=== PATIENT | female | born 1995 | race Two or more races ===

== ENCOUNTER 2017-10-22 08:09 | Day surgery (SDC) | payer OTHER ==
[2017-10-21 08:50] VITALS: BMI 20.9
[~2017-10-22 08:09] MED LIST: LACTATED RINGERS 1,000 ML IV SCH
[2017-10-22 09:28] VITALS: BP 135/76; PULSE 75; RESP 18; TEMP 97.7
== END 2017-10-22 10:08 | disposition home or self-care (01) ==
LOC: ORWHC2ENDO 08:09
DX: R11.0 Nausea (principal); Z53.8 Procedure and treatment not carried out for other reasons
CPT/HCPCS: 84703

== ENCOUNTER 2018-04-05 19:18 | Outpatient (CLI) | payer OTHER ==
[2018-04-05] MEDS ORDERED: PANTOPRAZOLE SODIUM 40 MG GRANULE PKT PO STA (19:58)
[2018-04-05] MEDS ORDERED: PANTOPRAZOLE 40 MG TABLET PO STA (20:12)
[2018-04-05 21:54] VITALS: RESP 16; TEMP 98.2
[2018-04-05 21:57] VITALS: BP 127/80; PULSE 100
--- NOTE | 2018-04-08 08:39 | P.MSEPDOC ---
Presenting Problems - Arrival Data Date of Arrival on Unit: 04/05/18 Time of Arrival on Unit: 19:18 Mode of Transport: Ambulatory - Complaint OB-Reason for Admission/Chief Complaint: Pain Comment: abd pain around belly button and left upper quad. Medical History - Information : 1 Para: 0 Term: 0 : 0 Abortions: Spontaneous or Elective: 0 Number of Living Children: 0 - Gestational Age Gestational Age by ARIEL (wks/days): 28 Weeks and 3 Days Review of Systems - Review of Systems Constitutional: No problems Breast: No problems ENT: No problems Cardiovascular: No problems Respiratory: No problems Gastrointestinal: Pain Genitourinary: No problems Musculoskeletal: No problems Neurological: No problems Skin: No problems Comment: pt reports history of ulcers. Vital Signs - Temperature Temperature: 98.2 F Temperature Source: Temporal Artery Scan - Pulse Left Pulse Rate: 100 Pulse Assessment Method: Automatic Cuff - Respirations Respiratory Rate: 16 Oxygen Delivery Method: Room Air - Blood Pressure Right Arm Blood Pressure: 127/80 Blood Pressure Mean: 95 Blood Pressure Source: Automatic Cuff Medical Screen Scoring (Pre) - Cervical Exam Dilation: Exam Deferred Effacement: Exam Deferred Membranes: Intact - Uterine Contractions Frequency: N/A Duration: N/A Intensity: N/A - Maternal Vital Signs Maternal Temperature: N/A Maternal Blood Pressure: N/A Signs of Preeclampsia: Epigastric Pain = 1 Maternal Respirations: N/A - Pain Assessment Pain Location and Character: Abdomen Pain Scale Used: Numeric (1 - 10) Pain Intensity: 6 Pain Management Goal: 3 Pain Description: *Acute, Sharp, Stabbing Pain Frequency: Constant Pain Duration Units: Days Pain Behavior: Vocalization Pain Aggravating Factors: Activity, Position Non-Pharmacological Interventions: Relaxation Technique - Maternal Trauma Maternal Trauma: N/A - Assessment Baseline FHR: 135 Heart Rate - NICHD Category: Category I (Normal) = 0 NST: Reactive Position: N/A Station: N/A - Total Score Total Score (Pre): 1 - Level of Risk Level of Risk: Low (0-5) Physician Notification (Pre) - Physician Notified Physician Notified Date: 04/05/18 Physician Notified Time: 19:51 Physician/Practitioner Notifed:: Dr. Beasley Spoke With: Dr. Beasley New Order Received: Yes - Notification Comment Comment: Verbal report given to Dr. Beasley see [facility]. Orders for prilosec 20mg and cycle blood pressure. Physician will reevaluate after done in OR. Medical Screen Scoring (Post) - Cervical Exam Dilation: Exam Deferred Effacement: Exam Deferred Membranes: Intact - Uterine Contractions Frequency: N/A Duration: N/A Intensity: N/A - Maternal Vital Signs Maternal Temperature: N/A Maternal Blood Pressure: N/A Signs of Preeclampsia: Epigastric Pain = 1 Maternal Respirations: N/A - Pain Assessment Pain Location and Character: Abdomen Pain Scale Used: Numeric (1 - 10) Pain Intensity: 6 Pain Management Goal: 3 Pain Description: *Acute, Sharp, Stabbing Pain Frequency: Constant Pain Duration Units: Days Pain Behavior: Vocalization Non-Pharmacological Interventions: Position/Reposition - Maternal Trauma Maternal Trauma: N/A - Assessment Heart Rate: 135 Heart Rate - NICHD Category: Category I (Normal) = 0 NST: Reactive Position: N/A Station: N/A - Total Score Total Score (Post): 1 - Post Treatment Level of Risk Post Treatment Level of Risk: Low (0-5) Physician Notification (Post) - Physician Notified Physician Notified Date: 04/05/18 Physician Notified Time: 20:41 Physician/Practitioner Notified:: Dr. Beasley Spoke With: Dr. Beasley New Order Received: Yes - Notification Comment Comment: discharge and follow up intructions given. Disposition - Disposition OB Disposition: Discharge to home Discharge Date: 04/05/18 Discharge Time: 20:41 I agree with the RN Medical Screening Exam: Yes Risk & Benefit of care provided described in d/c instruction: No Diagnosis: EOSINOPHILIC GASTRITIS OR GASTROENTERITIS
== END 2018-04-05 20:41 | disposition home or self-care (01) ==
LOC: FBPOP 19:18
PROVIDERS: ATTEND Obstetrics & Gynecology
DX: O99.613 Diseases of the digestive system complicating pregnancy, third trimester (principal); K52.9 Noninfective gastroenteritis and colitis, unspecified; Z3A.28 28 weeks gestation of pregnancy
CPT/HCPCS: 59025; G0463; 99213

== ENCOUNTER 2018-05-12 11:21 | Outpatient (CLI) | payer OTHER ==
[2018-05-12 18:44] VITALS: BP 125/69; PULSE 88; RESP 18; TEMP 98.3
--- NOTE | 2018-05-16 11:32 | P.MSEPDOC ---
Presenting Problems - Arrival Data Date of Arrival on Unit: 05/12/18 Time of Arrival on Unit: 11:30 Mode of Transport: Ambulatory - Complaint OB-Reason for Admission/Chief Complaint: Pain Comment: upper left quad abd pain onset yesterday. no vomitting or diarrhea. states a little emesis yesterday am but that is normal for her for morning sickness. states constipation. was inst on stool softeners and took 1 tab on sat am but none since. last bm 4 days ago with much straining and discomfort. states constipation has been a lifelong problem for her. Medical History - Information : 1 Para: 0 Term: 0 : 0 Abortions: Spontaneous or Elective: 0 Number of Living Children: 0 - Gestational Age Gestational Age by ARIEL (wks/days): 33 Weeks and 6 Days Review of Systems - Review of Systems Constitutional: No problems Breast: No problems ENT: No problems Cardiovascular: No problems Respiratory: No problems Gastrointestinal: Constipation Genitourinary: No problems Musculoskeletal: No problems Neurological: No problems Skin: No problems Vital Signs - Temperature Temperature: 98.3 F Temperature Source: Oral - Pulse Right Brachial Pulse Rate: 88 Pulse Assessment Method: Auscultation - Respirations Respiratory Rate: 18 Oxygen Delivery Method: Room Air O2 Sat by Pulse Oximetry: 97 - Blood Pressure Right Arm Blood Pressure: 125/69 Blood Pressure Mean: 87 Blood Pressure Source: Automatic Cuff Medical Screen Scoring (Pre) - Cervical Exam Dilation: Exam Deferred Effacement: Exam Deferred - Uterine Contractions Frequency: N/A Duration: N/A Intensity: N/A - Maternal Vital Signs Maternal Temperature: N/A Maternal Blood Pressure: N/A Signs of Preeclampsia: N/A Maternal Respirations: N/A - Pain Assessment Pain Location and Character: Left, Upper, Abdomen Pain Scale Used: Numeric (1 - 10) Pain Intensity: 6 Pain Description: *Acute Pain Frequency: Intermittent Pain Duration: 2 Pain Duration Units: Days Pain Behavior: None Exhibited Pain Aggravating Factors: Activity - Maternal Trauma Maternal Trauma: N/A - Assessment Baseline FHR: 135 Heart Rate - NICHD Category: Category I (Normal) = 0 NST: Reactive Position: N/A Station: N/A - Total Score Total Score (Pre): 0 - Level of Risk Level of Risk: Low (0-5) Physician Notification (Pre) - Physician Notified Physician Notified Date: 05/12/18 Physician Notified Time: 12:20 Physician/Practitioner Notifed:: yes Spoke With: shantel New Order Received: Yes - Notification Comment Comment: discharge home. to take meds as ordered. (see comments under complaint section above) Disposition - Disposition OB Disposition: Discharge to home Discharge Date: 05/12/18 Discharge Time: 12:30 I agree with the RN Medical Screening Exam: Yes Risk & Benefit of care provided described in d/c instruction: Yes Diagnosis: RELATED CONDITIONS, UNSPECIFIED, THIRD TRIMESTER
== END 2018-05-12 12:30 | disposition home or self-care (01) ==
LOC: FBPOP 11:21
PROVIDERS: ATTEND Obstetrics & Gynecology
DX: O26.93 Pregnancy related conditions, unspecified, third trimester (principal); Z3A.33 33 weeks gestation of pregnancy
CPT/HCPCS: 59025; G0463; 99213

== ENCOUNTER 2018-06-28 02:48 | Inpatient (IN) | payer OTHER ==
[2018-06-28] MEDS ORDERED: TERBUTALINE 1 MG/ML VIAL SQ PRN (05:27)
[2018-06-28] MEDS ORDERED: OXYTOCIN 10 UNIT/ML 1 ML VIAL IM PRN (05:27)
[2018-06-28] MEDS ORDERED: LIDOCAINE 0.5% (PF) 5 MG/ML (50 ML SDV) SQ PRN (05:27)
[2018-06-28] MEDS ORDERED: PENICILLIN G POTASSIUM 5,000,000 UNIT in DEXTROSE 5% IN WATER 100 ML IVPB STA ×2 (05:27)
[2018-06-28] MEDS ORDERED: METHYLERGONOVINE 0.2 MG/ML 1 ML AMP IM PRN (05:27)
[2018-06-28] MEDS ORDERED: CARBOPROST TROMETHAMINE 250 MCG/ML 1 ML AMP IM PRN (05:27)
[2018-06-28] MEDS ORDERED: BUTORPHANOL 1 MG/ML 1 ML VIAL IV PRN (05:40)
[2018-06-28 05:51] VITALS: BMI 28.9
[2018-06-28] MEDS: LACTATED RINGERS 1,000 ML IV SCH ×2 (05:57→10:11)
[2018-06-28 06:16] LABS: Anisocytosis Slight; Basophils % (A) 0 %; Eosinophils % (A) 0 %; HCT 37.9 % (34.0-46.0); HGB 11.7 gm/dL (11.4-16.0); Lymphocytes # (A) 0.8 k/uL (1.0-4.8); Lymphocytes % (A) 7 %; MCH 26.3 pg (25.0-35.0); MCHC 30.8 g/dL (31.0-37.0); MCV 85.5 fL (80.0-100.0); Mean Platelet Volume 9.7; Monocytes # (A) 0.4 k/uL (0-1.0); Monocytes % (A) 3 %; Neutrophils % (A) 89 %; Platelet Count 194 k/uL (150-450); RBC 4.44 m/uL (3.80-5.40); RDW 19.7 % (11.5-15.5); WBC 12.3 k/uL (3.8-10.6)
[2018-06-28] MEDS: OXYTOCIN 30 UNITS/500 ML NS 30 UNIT in SALINE 1 500ML.BAG IV SCH (06:42)
--- NOTE | 2018-06-28 08:31 | P.HPOB ---
History of Present Illness H&P Date: 06/28/18 Chief Complaint: Strong regular uterine contractions This is a 22-year-old white female 1 para 0 EDC 06/24/2018 at 40-4/7 weeks' gestation. Patient presented with strong regular uterine contractions. No change was noted cervically in the triage area, however several late decelerations were observed. Patient was therefore admitted for augmentation/induction of labor. She denies fluid leakage or vaginal bleeding. Fetus is been active throughout the . history is significant for blood type O positive, rubella status immune. Gonorrhea and chlamydia cultures, HIV testing, hepatitis B surface antigen, urine culture all negative. Rubella status immune. VDRL testing negative. Positive group B strep cultures. One-hour Glucola 122. Past medical history is significant for condylomata, and ulcers. Past surgical history is negative. Current medications vitamins daily. ALLERGIES none known. Family history is unremarkable. Social history patient has never been a smoker, she denies alcohol or drug use. She is and her is present. On exam this is a pleasant young female, 5 foot 5 inches, approximately 170 p ounds, vital signs are stable and patient is afebrile. Initial blood pressure slightly elevated likely due to pain, repeat blood pressures negative. The general physical exam is within normal limits. Cervix is 2-3 cm at the time of this dictation, 100% effaced, -2 station, vertex presentation. Artificial amniorrhexis reveals meconium-stained fluid. heart rate at this time is reassuring with frequent accelerations, occasional variable decelerations noted. Uterine contractions approximately every 5 minutes apart of moderate intensity. Impression: 40-4/7 weeks intrauterine , early labor, meconium-stained fluid, otherwise all signs reassuring. Plan: Stadol has artery been given. She is requesting epidural and that will be administered at this time. Penicillin G has already been instituted per hospital protocol and will continue. Close maternal and surveillance. Oxytocin augmentation as needed. Anticipate normal spontaneous vaginal delivery. Review of Systems Constitutional: Reports as per HPI Past Medical History Past Medical History: GERD/Reflux History of Any Multi-Drug Resistant Organisms: None Reported Additional Past Surgical History / Comment(s): EGD Past Anesthesia/Blood Transfusion Reactions: No Reported Reaction Past Psychological History: No Psychological Hx Reported Smoking Status: Never smoker Past Alcohol Use History: None Reported Past Drug Use History: None Reported - Past Family History Mother Family Medical History: No Reported History Medications and Allergies Home Medications Medication Instructions Recorded Confirmed Type Ferrous Sulfate [Iron] 325 mg PO DAILY MDD 1 tab 05/12/18 06/28/18 History Pnv No.95/Ferrous Fum/Folic AC 1 each PO DAILY 06/28/18 06/28/18 History [ Multivitamin Tablet] Allergies Allergy/AdvReac Type Severity Reaction Status Date / Time No Known Allergies Allergy Verified 06/28/18 02:50 Exam Vital Signs Temp Pulse Resp BP Pulse Ox 06/28/18 05:19 97.2 F L 81 18 118/65 06/28/18 03:00 97.5 F L 89 16 144/91 100 Intake and Output 06/27/18 06/28/18 06/28/18 22:59 06:59 14:59 Other: # Voids 1 Weight 78.925 kg See dictation under HPI please Results Result Diagrams: 06/28/18 05:50 Abnormal Lab Results - Last 24 Hours (Table) 06/28/18 Range/Units 05:50 WBC 12.3 H (3.8-10.6) k/uL MCHC 30.8 L (31.0-37.0) g/dL RDW 19.7 H (11.5-15.5) % Neutrophils # 11.0 H (1.3-7.7) k/uL Lymphocytes # 0.8 L (1.0-4.8) k/uL Assessment and Plan Assessment: 40-4/7 weeks intrauterine , early labor, meconium-stained fluid. Positive group B strep cultures noted. Plan: Penicillin G per protocol has been instituted and will continue. Oxytocin augmentation as needed. Epidural to be placed at this time. Continue close maternal and surveillance. Anticipate normal spontaneous vaginal delivery. Time with Patient: Less than 30
[2018-06-28] MEDS ORDERED: SODIUM CHLORIDE 0.9% 100 ML BAG ONE (09:30)
[2018-06-28] MEDS ORDERED: ROPIVACAINE 5MG/ML 20ML VIAL ONE (09:30)
[2018-06-28] MEDS ORDERED: fentaNYL (PF) 50 MCG/ML 5 ML AMP ONE (09:30)
[2018-06-28] MEDS: PENICILLIN G POTASSIUM 2,500,000 UNIT in DEXTROSE 5% IN WATER 100 ML IVPB SCH ×2 (10:10)
[2018-06-28] MEDS ORDERED: ROPIVACAINE 100 MG, fentaNYL (PF) 200 MCG in SODIUM CHLORIDE 0.9% 76 ML EPIDURAL ONE (11:42)
[2018-06-28] MEDS ORDERED: diphenhydrAMINE 50 MG/ML 1 ML VIAL IVP PRN ×2 (12:04)
[2018-06-28] MEDS ORDERED: diphenhydrAMINE 50 MG CAP PO PRN (12:04)
[2018-06-28] MEDS ORDERED: LANOLIN CREAM 5 GM TUBE TOPICAL PRN (12:04)
[2018-06-28] MEDS ORDERED: HYDROCORTISONE 2.5% RECTAL CREAM 30 GM TUBE RECTAL PRN (12:04)
[2018-06-28] MEDS ORDERED: WITCH HAZEL 1 EACH MED..PAD TOPICAL PRN (12:04)
[2018-06-28] MEDS ORDERED: ACETAMINOPHEN TAB 325 MG TAB PO PRN (12:04)
[2018-06-28] MEDS ORDERED: diphenhydrAMINE 25 MG CAP PO PRN (12:04)
[2018-06-28] MEDS ORDERED: ZOLPIDEM 5 MG TAB PO PRN (12:04)
[2018-06-28] MEDS ORDERED: BENZOCAINE/MENTHOL SPRAY 1 GM/SPRAY AEROSOL TOPICAL PRN (12:04)
[2018-06-28] MEDS ORDERED: SIMETHICONE 80 MG CHEWABLE PO PRN (12:04)
--- NOTE | 2018-06-28 12:04 | P.PROBDLV ---
Vaginal Delivery Note - . Vaginal Delivery Note: This is a 22-year-old female 1 para 0 EDC 06/24/2018 40-5/7 weeks' gestation. Patient presented in early labor, 2 late decelerations were noted in the triage area. For this reason, patient was admitted and oxytocin was started. She is penicillin nonallergic, with positive group B strep cultures, and therefore penicillin G was given per hospital protocol 2 doses, first at 06 100, second at 10 AM. Please see my admitting history and physical for details. Artificial amniorrhexis revealed meconium-stained fluid. Internal scalp lead was applied. Excellent [id number] variability was noted throughout the first stage of labor. Patient became completely dilated at 1053 and began the second stage of labor at that time. Perineal body was prepped and draped in the usual sterile fashion. For approximate 10 minutes at the end of the second stage of labor, heart rate went down to the 80s with sustained deceleration. For this reason the suction cup was placed on the baby's vertex. With gentle downward traction and appropriate suction pressure the head delivered occiput posterior. There was no nuchal cord noted. The rest of the 's corpus delivered quickly, time of delivery 1140 hrs. Umbilical cord was doubly clamped and ligated. Pricing Clerk was at the bedside, Apgars of 46 and 7 at one and 5 and 10 minutes were assigned. The placenta delivered spontaneously, it was inspected and noted to be darkly stained with meconium, otherwise intact with trivascular cord, at 1143 hours. At this time the uterus is massaged. Inspection of the cervix, vagina, perineum, periurethral, and perirectal areas revealed a small second-degree perineal laceration. This was repaired in the usual fashion using 3-0 undyed Vicryl. Fundus is firm and in the midline, symmetric and 18 week size upon completion of delivery. Infant is currently in the nursery with oxygen assistance. Weight has not yet been documented. Patient and her family are resting, and we'll begin the bonding experience as soon as feasible pending status.
[2018-06-28] MEDS ORDERED: OXYTOCIN 20 UNITS/1000 ML NS 1,000 ML IV SCH (12:15)
[2018-06-28] MEDS: IBUPROFEN 600 MG TAB PO PRN (23:24)
[2018-06-29] MEDS: SENNOSIDES-DOCUSATE SODIUM 1 EACH TAB PO SCH ×2 (00:59→08:31)
[2018-06-29 05:50] LABS: Anisocytosis Slight; Basophils % (A) 0 %; Eosinophils % (A) 0 %; HCT 36.3 % (34.0-46.0); HGB 11.6 gm/dL (11.4-16.0); Hypochromasia Slight; Lymphocytes # (A) 1.9 k/uL (1.0-4.8); Lymphocytes % (A) 16 %; MCH 27.6 pg (25.0-35.0); MCV 86.2 fL (80.0-100.0); Mean Platelet Volume 9.5; Monocytes # (A) 0.5 k/uL (0-1.0); Monocytes % (A) 4 %; Neutrophils # (A) 9.3 k/uL (1.3-7.7); Neutrophils % (A) 77 %; Platelet Count 208 k/uL (150-450); RBC 4.21 m/uL (3.80-5.40); RDW 19.7 % (11.5-15.5)
--- NOTE | 2018-06-29 08:16 | P.PN ---
Subjective Progress Note Date: 06/29/18 Principal diagnosis: post day #1 Pain well controlled, minimal to moderate lochia, no complaints Objective - Vital Signs Vital signs: Vital Signs Temp 98.1 F 06/29/18 04:00 Pulse 73 06/29/18 04:00 Resp 16 06/29/18 04:00 BP 100/58 06/29/18 04:00 Pulse Ox 98 06/29/18 04:00 Intake & Output 06/28/18 06/29/18 06/29/18 18:59 06:59 18:59 Output Total 300 350 Balance -300 -350 Output: Urine 300 350 Other: # Voids 1 2 - Constitutional General appearance: Present: average body habitus, cooperative - EENT Eyes: Present: PERRLA ENT: Present: hearing grossly normal - Neck Neck: Present: normal ROM Thyroid: bilateral: normal size - Respiratory Respiratory: bilateral: CTA - Cardiovascular Rhythm: regular - Gastrointestinal General gastrointestinal: Present: normal bowel sounds - Genitourinary Genitourinary Comment(s): Fundus firm, midline, symmetric. Breasts nonengorged. - Integumentary Integumentary: Present: normal - Neurologic Neurologic: Present: CNII-XII intact - Musculoskeletal Musculoskeletal: Present: gait normal, strength equal bilaterally - Psychiatric Psychiatric: Present: A&O x's 3, appropriate affect, intact judgment & insight - Labs CBC & Chem 7: 06/29/18 05:22 Labs: Abnormal Lab Results - Last 24 Hours (Table) 06/29/18 Range/Units 05:22 WBC 12.0 H (3.8-10.6) k/uL RDW 19.7 H (11.5-15.5) % Neutrophils # 9.3 H (1.3-7.7) k/uL Assessment and Plan Assessment: post day #1, doing very well. Plan: Continue post- care. Likely discharge home tomorrow Time with Patient: Less than 30
[2018-06-29] MEDS: IBUPROFEN 600 MG TAB PO PRN (08:28)
[2018-06-29 09:26] VITALS: PULSE 68
[2018-06-30 01:16] VITALS: BP 122/59; TEMP 98.6
[2018-06-30] MEDS: SENNOSIDES-DOCUSATE SODIUM 1 EACH TAB PO SCH ×2 (01:54→07:57)
[2018-06-30] MEDS: IBUPROFEN 600 MG TAB PO PRN (07:55)
[2018-06-30 08:23] VITALS: RESP 16
--- NOTE | 2018-06-30 10:09 | P.DS ---
Providers Date of admission: 06/28/18 05:00 Expected date of discharge: 06/30/18 Attending physician: Andrés Castro Primary care physician: Ahsley Yeboah - Discharge Diagnosis(es) (1) Vacuum extraction, delivered, current hospitalization Current Visit: Yes Status: Acute (2) Meconium in amniotic fluid affecting management of mother Current Visit: Yes Status: Acute Hospital Course: The patient is a 22-year-old 1 para 0 admitted at 40-4/7 weeks by good dating parameters. She is admitted in early active labor with all signs reassuring. She did have several late appearing decelerations as well as the regular contractions, and despite the lack of cervical change was admitted for management of labor. She had antibody prophylaxis started for group B strep as well as Pitocin augmentation started. She underwent artificial rupture of membranes demonstrating meconium-stained fluid. She later had an epidural catheter placed for analgesia. She ultimately progressed fairly quickly to complete and began pushing. She pushed for slightly more than an hour and at an outlet or lower station, had a prolonged deceleration to the 80s with no return. A vacuum extractor, mighty Vac, was applied and the 's head delivered on the next maternal push. The remainder of the delivery was uncomplicated. She was delivered of a viable 7 lbs. 5 oz. baby girl with Apgars of 4 at 1 minute, 6 at 5 minutes, and 7 at 10 minutes. Second-degree laceration was encountered and repaired in standard fashion. The was taken to the special care nursery for ongoing issues with meconium aspiration. The patient's course was unremarkable with vital signs remained stable and her temperature was afebrile throughout. She was deemed stable for discharge on day #2 and was discharged home to follow-up in the office in 6 weeks' time routinely. Discharge instructions included calling for any significantly increased bleeding or foul-smelling lochia, significantly increased fever or abdominal pain, perineal complaints, breast complaints, or anything else that concerned her. She was additionally instructed to have nothing in the vagina for at least 6 weeks time to include intercourse. She understood all of her instructions and agrees to follow up as noted above. Discharge medications included continued vitamins as she has opted to breast-feed. She was otherwise to use [id number] analgesic pain medications as needed. Maternal blood type is O+ and rubella status is immune. The infant is to remain in the hospital for the diagnosis of meconium aspiration syndrome where she will receive a full 7 date course of antibiotic prophylaxis. She is currently being weaned from oxygen having been initially intubated. Procedures: #1. Antibody prophylaxis #2. Pitocin augmentation #3. Artificial rupture of membranes #4. Epidural analgesia #5. Outlet vacuum extraction #6. Repair of perineal laceration Plan - Discharge Summary Discharge Rx Participant: No New Discharge Prescriptions: No Action Ferrous Sulfate [Iron] 325 mg PO DAILY MDD 1 tab Pnv No.95/Ferrous Fum/Folic AC [ Multivitamin Tablet] 1 each PO DAILY Discharge Medication List Ferrous Sulfate [Iron] 325 mg PO DAILY MDD 1 tab 05/12/18 [History] Pnv No.95/Ferrous Fum/Folic AC [ Multivitamin Tablet] 1 each PO DAILY 06/28/18 [History] Follow up Appointment(s)/Referral(s): Andrés Castro MD [STAFF PHYSICIAN] - 6 Weeks Discharge Disposition: HOME SELF-CARE
[2018-06-30] MEDS: PENICILLIN G POTASSIUM 2,500,000 UNIT in DEXTROSE 5% IN WATER 100 ML IVPB SCH ×10 (13:36→13:42)
[2018-06-30] MEDS: LACTATED RINGERS 1,000 ML IV SCH ×3 (13:38→13:42)
[2018-06-30] MEDS: OXYTOCIN 30 UNITS/500 ML NS 30 UNIT in SALINE 1 500ML.BAG IV SCH (13:39)
== END 2018-06-30 15:15 | disposition home or self-care (01) | DRG 807 ==
LOC: FBPOP 02:48 → 4FBP 05:00
PROVIDERS: ADMIT Obstetrics & Gynecology; ATTEND Obstetrics & Gynecology
PROC: 10D07Z6 Extraction of Products of Conception, Vacuum, Via Natural or Artificial Opening (ICD-10-PCS; principal; 2018-06-28)
PROC: 0KQM0ZZ Repair Perineum Muscle, Open Approach (ICD-10-PCS; 2018-06-28)
DX: O77.0 Labor and delivery complicated by meconium in amniotic fluid (principal); O76 Abnormality in fetal heart rate and rhythm complicating labor and delivery; O70.1 Second degree perineal laceration during delivery; O99.62 Diseases of the digestive system complicating childbirth; K21.9 Gastro-esophageal reflux disease without esophagitis; O99.824 Streptococcus B carrier state complicating childbirth; Z37.0 Single live birth; Z3A.40 40 weeks gestation of pregnancy
CPT/HCPCS: 59025; 85025; 86850; 86900; 86901; 99213

== ENCOUNTER → 2018-08-28 | Outpatient (CLI) | payer OTHER ==
[2018-08-28 16:27] LABS: Basophils % (A) 1 %; Eosinophils # (A) 0.1 k/uL (0-0.7); Eosinophils % (A) 3 %; HCT 40.3 % (34.0-46.0); HGB 12.6 gm/dL (11.4-16.0); Lymphocytes # (A) 1.5 k/uL (1.0-4.8); Lymphocytes % (A) 32 %; MCH 27.7 pg (25.0-35.0); MCHC 31.2 g/dL (31.0-37.0); MCV 88.5 fL (80.0-100.0); Mean Platelet Volume 8.4; Monocytes # (A) 0.3 k/uL (0-1.0); Monocytes % (A) 5 %; Neutrophils # (A) 2.6 k/uL (1.3-7.7); Neutrophils % (A) 57 %; Platelet Count 222 k/uL (150-450); RBC 4.55 m/uL (3.80-5.40); RDW 14.5 % (11.5-15.5); WBC 4.7 k/uL (3.8-10.6)
== END | disposition home or self-care (01) ==
LOC: LABPAT 15:43
PROVIDERS: ATTEND Obstetrics & Gynecology
DX: Z01.812 Encounter for preprocedural laboratory examination (principal); O02.1 Missed abortion
CPT/HCPCS: 36415; 85025

== ENCOUNTER 2018-08-29 07:44 | Day surgery (SDC) | payer OTHER ==
[~2018-08-29 07:44] MED LIST changes: +DEXAMETHASONE SOD PHOSPHATE 10 MG/ML 1 ML VIAL IV ONE; +HYDROmorphone 0.5 MG/0.5 ML SYRINGE IVP PRN; +ONDANSETRON 4 MG/2 ML VIAL IVP ONE; +ONDANSETRON 4 MG/2 ML VIAL IVP PRN
[2018-08-29] MEDS ORDERED: LIDOCAINE 1% 20 ML VIAL (10MG/ML) FOR IV START INTRADERMA ONE (08:07)
[2018-08-29] MEDS ORDERED: LACTATED RINGERS 1,000 ML IV ONE ×2 (08:07→10:32)
[2018-08-29] MEDS ORDERED: KETOROLAC 30 MG/ML 1 ML VIAL ONE (09:16)
[2018-08-29] MEDS ORDERED: PROPOFOL 10 MG/ML 20 ML VIAL IV ONE (09:16)
[2018-08-29] MEDS ORDERED: fentaNYL (PF) 50 MCG/ML 2 ML AMP ONE (09:16)
[2018-08-29] MEDS ORDERED: MIDAZOLAM 2 MG/2 ML VIAL ONE (09:16)
[2018-08-29] MEDS ORDERED: LIDOCAINE 1% INJ 10MG/ML (20 ML MDV) ONE (09:16)
[2018-08-29] MEDS ORDERED: IBUPROFEN 600 MG TAB PO PRN (09:24)
[2018-08-29] MEDS ORDERED: diphenhydrAMINE 50 MG/ML 1 ML VIAL IVP PRN (09:24)
[2018-08-29] MEDS ORDERED: Acetaminophen-Codeine 300-30mg TAB PO PRN ×2 (09:24)
[2018-08-29] MEDS ORDERED: KETOROLAC 30 MG/ML 1 ML VIAL IVP PRN (09:24)
[2018-08-29] MEDS ORDERED: METOCLOPRAMIDE 5 MG/ML 2 ML VIAL IVP PRN (09:24)
[2018-08-29] MEDS ORDERED: SIMETHICONE 80 MG CHEWABLE PO PRN (09:24)
[2018-08-29] MEDS ORDERED: LACTATED RINGERS 1,000 ML IV SCH (09:30)
--- NOTE | 2018-08-29 09:51 | P.OP ---
Date of Procedure: 08/29/18 Preoperative Diagnosis: #1. 7 weeks . #2. Presumed retained products of conception Postoperative Diagnosis: Same Procedure(s) Performed: #1. Dilation and aspiration curettage Anesthesia: other (Gen. by face mask) Surgeon: Andrés Castro Estimated Blood Loss (ml): 150 IV fluids (ml): 300 Urine output (ml): 100 Pathology: other (Intrauterine contents, probable retained products of conception) Condition: stable Disposition: PACU Operative Findings: Preoperative pelvic examination demonstrated a roughly 5-6 weeks that the retroverted mobile normal shaped uterus with normal adnexa bilaterally. Intraoperatively, the uterus sounded to approximately 8-9 cm. The cervix was dilated to a #16 Hanks dilator. Further dilation was carried out. There was some tissue seen passing through the tubing on the first pass with the aspiration curet. #8 curved aspiration curet was utilized. The typical gritty texture was encountered with a sharp curette. Description of Procedure: The patient was prepped and draped in usual fashion after general anesthesia was administered by the anesthesiologist. A weighted speculum was placed and the bladder drained of approximately 100 mL of clear rylee urine. The anterior lip of the cervix was grasped with a signal 2 tenaculum and uterus sounded to 8+ centimeters as noted above. The cervix was clearly dilated already and it easily admitted a #16 Hanks dilator. It was further dilated to #18 Hanks dilator at which time a #8 curved aspiration curet was placed to the fundus the uterus and suction applied. After adequate suction was built, thorough circumferential suction curettage was carried out from the fundus to the cervix with tissue clearly seen passing through the tubing on the first pass. Second pass produced no further tissue. A small sharp curette was then utilized to thoroughly and circumferentially curet the endometrial cavity with the typical gritty texture noted and no further tissue being seen or removed. One last pass was made with the aspiration curet. There was some moderate ongoing bleeding from the cervix which was controlled with uterine massage. There was no significant ongoing bleeding either from the tenaculum site or the cervix at the end of the procedure. All sponge, instrument, needle counts were correct. There were no complications. Estimated blood loss for the case is approximately 150 mL. The patient tolerated the procedure well and proceeded to the recovery room in stable condition.
[2018-08-29 10:06] VITALS: TEMP 96.8
[2018-08-29 12:00] VITALS: BP 111/68; PULSE 58; RESP 18
== END 2018-08-29 11:58 | disposition home or self-care (01) ==
LOC: OR 07:44
PROVIDERS: ATTEND Obstetrics & Gynecology
DX: O72.2 Delayed and secondary postpartum hemorrhage (principal); Z37.0 Single live birth
CPT/HCPCS: 59160; 86900; 86901; 86850; J2250; J1100; J2405; J2001; J3010; J1885; J2704; 88305

== ENCOUNTER 2020-01-26 06:00 | Inpatient (IN) | payer OTHER ==
[2020-01-26] MEDS ORDERED: METHYLERGONOVINE 0.2 MG/ML 1 ML AMP IM PRN (06:20)
[2020-01-26] MEDS ORDERED: OXYTOCIN 10 UNIT/ML 1 ML VIAL IM PRN (06:20)
[2020-01-26] MEDS ORDERED: LIDOCAINE 0.5% (PF) 5 MG/ML (50 ML SDV) SQ PRN (06:20)
[2020-01-26] MEDS ORDERED: TERBUTALINE 1 MG/ML VIAL SQ PRN (06:20)
[2020-01-26] MEDS ORDERED: CARBOPROST TROMETHAMINE 250 MCG/ML 1 ML AMP IM PRN (06:20)
[2020-01-26 06:55] LABS: Basophils % (A) 0 %; Eosinophils # (A) 0.1 k/uL (0-0.7); Eosinophils % (A) 1 %; HGB 13.7 gm/dL (11.4-16.0); Lymphocytes % (A) 23 %; MCH 29.9 pg (25.0-35.0); MCHC 33.4 g/dL (31.0-37.0); MCV 89.5 fL (80.0-100.0); Mean Platelet Volume 9.1; Monocytes # (A) 0.4 k/uL (0-1.0); Monocytes % (A) 4 %; Neutrophils # (A) 6.1 k/uL (1.3-7.7); Neutrophils % (A) 69 %; Platelet Count 195 k/uL (150-450); RBC 4.58 m/uL (3.80-5.40); RDW 13.1 % (11.5-15.5); WBC 8.7 k/uL (3.8-10.6)
[2020-01-26] MEDS: LACTATED RINGERS 1,000 ML IV SCH ×2 (07:13→10:40)
[2020-01-26] MEDS: OXYTOCIN 30 UNITS/500 ML NS 30 UNIT in SALINE 1 500ML.BAG IV SCH (07:13)
[2020-01-26] MEDS ORDERED: BUTORPHANOL 1 MG/ML 1 ML VIAL IV PRN (08:54)
--- NOTE | 2020-01-26 08:59 | P.HPOB ---
History of Present Illness H&P Date: 01/26/20 Chief Complaint: 39-4/7 weeks, induction The patient is a 24-year-old 2 para 1001 admitted at 39-4/7 weeks as established by last menstrual period and confirmed by 19 week ultrasound. She is admitted for elective induction of labor with a favorable cervix and all si gns reassuring. Her has been entirely uncomplicated and group B strep status is negative. Obstetrical history: 2 para 1001 with 1 previous vacuum extraction at term followed by retained products of conception requiring D&C. Current statistics are listed in history of present illness. EDC of 01/29/2020 was established by last menstrual period and confirmed by 19 week ultrasound. Laboratory workup demonstrates a blood type of O+ with a negative antibody screen. Rubella status is immune. Remainder of the laboratory workup was within normal limits. One hour Glucola was normal and group B strep status is negative. Gynecologic history: Unremarkable with no history of any infections to include STDs. Review of Systems Review of systems is confined to history of present illness. Past Medical History Past Medical History: GERD/Reflux History of Any Multi-Drug Resistant Organisms: None Reported Additional Past Surgical History / Comment(s): EGD Past Anesthesia/Blood Transfusion Reactions: No Reported Reaction Past Psychological History: No Psychological Hx Reported Smoking Status: Never smoker Past Alcohol Use History: None Reported Past Drug Use History: None Reported - Past Family History Mother Family Medical History: No Reported History Medications and Allergies Home Medications Medication Instructions Recorded Confirmed Type Pnv No.95/Ferrous Fum/Folic AC 1 each PO DAILY 06/28/18 01/26/20 History [ Multivitamin Tablet] Allergies Allergy/AdvReac Type Severity Reaction Status Date / Time No Known Allergies Allergy Verified 01/26/20 06:18 Exam Vital Signs Temp Pulse Resp BP 01/26/20 06:18 97.5 F L 90 16 133/86 Intake and Output 01/25/20 01/26/20 01/26/20 22:59 06:59 14:59 Other: Weight 77.111 kg In general, this is a well-developed, well-nourished white female in no acute distress. Her heart has a regular rhythm and rate without murmur. Her lungs are clear to auscultation bilaterally in all craig. Her abdomen is gravid, nondistended, has normal active bowel sounds, is soft, nontender, and without any palpable masses aside from the uterine fundus. Her extremities are without any cyanosis, clubbing, or edema and are nontender to palpation bilaterally. Digital cervical examination demonstrates her cervix to be 2+ centimeters d ilated, 80% effaced, with the vertex in presentation at -2 station. Artificial rupture of membranes is carried out demonstrating clear fluid though there is a moderate amount of blood, likely bloody show. Results Result Diagrams: 01/26/20 06:30 Assessment and Plan (1) Term Current Visit: Yes Status: Acute Code(s): Z34.90 - ENCNTR FOR SUPRVSN OF NORMAL , UNSP, UNSP TRIMESTER SNOMED Code(s): 68215455 Plan: The patient is admitted for induction of labor. Pitocin augmentation has been started and artificial rupture membranes carried out. She will have close maternal and surveillance and expectant management will be practiced. She is a good candidate for either IV or epidural analgesia, whichever she may choose.
[2020-01-26] MEDS ORDERED: SODIUM CHLORIDE 0.9% 100 ML BAG ONE (11:43)
[2020-01-26] MEDS ORDERED: ROPIVACAINE 5MG/ML 20ML VIAL ONE (11:43)
[2020-01-26] MEDS ORDERED: fentaNYL (PF) 50 MCG/ML 5 ML AMP ONE (11:43)
[2020-01-26] MEDS ORDERED: diphenhydrAMINE 50 MG/ML 1 ML VIAL IVP PRN ×2 (16:03)
[2020-01-26] MEDS ORDERED: SIMETHICONE 80 MG CHEWABLE PO PRN (16:03)
[2020-01-26] MEDS ORDERED: HYDROcodone/APAP 7.5-325MG 1 EACH TAB PO PRN (16:03)
[2020-01-26] MEDS ORDERED: BENZOCAINE/MENTHOL SPRAY 1 GM/SPRAY AEROSOL TOPICAL PRN (16:03)
[2020-01-26] MEDS ORDERED: diphenhydrAMINE 50 MG CAP PO PRN (16:03)
[2020-01-26] MEDS ORDERED: LANOLIN CREAM 5 GM TUBE TOPICAL PRN (16:03)
[2020-01-26] MEDS ORDERED: ZOLPIDEM 5 MG TAB PO PRN (16:03)
[2020-01-26] MEDS ORDERED: HYDROCORTISONE 2.5% RECTAL CREAM 30 GM TUBE RECTAL PRN (16:03)
[2020-01-26] MEDS ORDERED: diphenhydrAMINE 25 MG CAP PO PRN (16:03)
[2020-01-26] MEDS ORDERED: ACETAMINOPHEN TAB 325 MG TAB PO PRN (16:03)
[2020-01-26] MEDS ORDERED: HYDROcodone/APAP 5-325MG 1 EACH TAB PO PRN (16:03)
--- NOTE | 2020-01-26 16:08 | P.PROBDLV ---
Vaginal Delivery Note - . Vaginal Delivery Note: The patient is a 24-year-old 2 para 1001 admitted at 39-4/7 weeks by good dating parameters. She is admitted for elective induction of labor with all signs reassuring upon admission. Her has been entirely uncomplicated and group B strep status is negative. On labor and delivery, she had Pitocin started followed by artificial rupture of membranes. She had a number of periods both in the latent phase of labor and the active phase of labor where heart tones became category 2 requiring Pitocin to be discontinued for a period of time. Following one of these episodes around the onset of the active phase of labor at approximately 4+ centimeters dilated, scalp stimulation produced acceleration after which time an epidural catheter was placed for analgesia. She continued to have episodes of decelerations with contractions but ultimately was able to have Pitocin restarted. She then progressed fairly quickly through the active phase to complete and +2 station. She pushed over the course of 3 contractions to a normal spontaneous vaginal delivery of a viable 7 lbs. 7 oz. baby boy with Apgars of 9 at 1 minute and 9 at 5 minutes delivered in the direct occiput anterior position. The placenta was delivered spontaneously, intact, and grossly normal with a grossly normal three-vessel cord inserted approximately 4- 5 cm from the margin of the placental disc. As the patient had retained products of conception with her previous delivery, the placenta was carefully inspected and noted to be intact. There were no lacerations of the perineum, vagina, or cervix required any repair. Estimated blood loss for the entire case was approximately 200 mL. There were no complications. All sponge, instrument, and needle counts were correct. Both mother and are resting comfortably in recovery.
[2020-01-26] MEDS ORDERED: OXYTOCIN 20 UNITS/1000 ML NS 1,000 ML IV SCH (16:15)
[2020-01-26] MEDS: SENNOSIDES-DOCUSATE SODIUM 1 EACH TAB PO SCH (20:02)
[2020-01-27] MEDS: IBUPROFEN 600 MG TAB PO PRN ×4 (03:33→23:06)
--- NOTE | 2020-01-27 08:53 | P.DS ---
Providers Date of admission: 01/26/20 06:14 Expected date of discharge: 01/27/20 Attending physician: Andrés Castro Primary care physician: Stated None - Discharge Diagnosis(es) (1) Term Current Visit: Yes Status: Acute (2) Normal spontaneous vaginal delivery Current Visit: Yes Status: Acute Hospital Course: The patient is a 24-year-old 2 para 1001 admitted at 39-4/7 weeks by good dating parameters. She is admitted for elective induction with all signs reassuring. Her was uncomplicated and group B strep status is negative. On labor and delivery, she had Pitocin started followed by artificial rupture of membranes for clear fluid. She did have intermittent category 2 heart rate tracing which was managed with fluid boluses, position changes, and stopping Pitocin. She had an upper catheter placed around the onset of the active phase of labor. She then progressed fairly quickly through the active phase of labor to complete and pushed very quickly to a normal spontaneous vaginal delivery of a viable 7 lbs. 7 oz. baby boy with Apgars of 9 at 1 minute and 9 at 5 minutes. Her course was unremarkable with vital signs remaining stable and her temperature was afebrile throughout. She was deemed stable for discharge on day #1 and was discharged home to follow-up in the office in 6 weeks' time routinely. Discharge instructions included calling for any significantly increased bleeding or foul-smelling lochia, signi ficantly increased fever or abdominal pain, perineal complaints, breast complaints, or anything else that concerned her. She was additionally instructed to have nothing in the vagina for at least 6 weeks time to include intercourse. She understood her instructions and agrees to follow up as noted above. Discharge medications included continue vitamins as she has opted to breast-feed. She was otherwise to use [id number] analgesic pain medications. Maternal blood type is O+ and rubella status is immune. Procedures: #1. Pitocin induction #2. Artificial rupture of membranes #3. Epidural analgesia #4. Normal spontaneous vaginal delivery Patient Condition at Discharge: Stable Plan - Discharge Summary New Discharge Prescriptions: No Action Pnv No.95/Ferrous Fum/Folic AC [ Multivitamin Tablet] 1 each PO DAILY Discharge Medication List Pnv No.95/Ferrous Fum/Folic AC [ Multivitamin Tablet] 1 each PO DAILY 06/28/18 [History] Follow up Appointment(s)/Referral(s): Andrés Castro MD [STAFF PHYSICIAN] - 6 Weeks Discharge Disposition: HOME SELF-CARE
[2020-01-27] MEDS: SENNOSIDES-DOCUSATE SODIUM 1 EACH TAB PO SCH ×2 (17:28→20:37)
[2020-01-27 23:38] VITALS: RESP 16
[2020-01-27] MEDS: OXYTOCIN 30 UNITS/500 ML NS 30 UNIT in SALINE 1 500ML.BAG IV SCH (23:38)
[2020-01-28] MEDS: IBUPROFEN 600 MG TAB PO PRN ×2 (07:51→14:17)
[2020-01-28] MEDS: SENNOSIDES-DOCUSATE SODIUM 1 EACH TAB PO SCH (07:52)
[2020-01-28 08:25] VITALS: BP 123/78; PULSE 85; TEMP 97.4
== END 2020-01-28 14:30 | disposition home or self-care (01) | DRG 807 ==
LOC: 4FBP 06:14
PROVIDERS: ADMIT Obstetrics & Gynecology; ATTEND Obstetrics & Gynecology
PROC: 10E0XZZ Delivery of Products of Conception, External Approach (ICD-10-PCS; principal; 2020-01-26)
PROC: 3E0R3BZ Introduction of Anesthetic Agent into Spinal Canal, Percutaneous Approach (ICD-10-PCS; principal; 2020-01-26)
PROC: 00HU33Z Insertion of Infusion Device into Spinal Canal, Percutaneous Approach (ICD-10-PCS; principal; 2020-01-26)
DX: O99.62 Diseases of the digestive system complicating childbirth (principal); Z37.0 Single live birth; K21.9 Gastro-esophageal reflux disease without esophagitis; Z3A.39 39 weeks gestation of pregnancy
CPT/HCPCS: 85025; 86850; 86900; 86901

== ENCOUNTER 2022-02-25 22:05 | Inpatient (IN) | payer OTHER ==
[2022-02-25] MEDS ORDERED: TERBUTALINE 1 MG/ML VIAL SQ PRN (22:40)
[2022-02-25] MEDS ORDERED: LIDOCAINE 0.5% (PF) 5 MG/ML (50 ML SDV) SQ PRN (22:40)
[2022-02-25] MEDS ORDERED: OXYTOCIN 30 UNITS/500 ML NS 30 UNIT in SALINE 1 500ML.BAG IV SCH (22:45)
[2022-02-25] MEDS: LACTATED RINGERS 1,000 ML IV SCH (22:45)
[2022-02-25 23:31] LABS: Basophils % (A) 0 %; Eosinophils % (A) 0 %; HCT 37.5 % (34.0-46.0); HGB 12.3 gm/dL (11.4-16.0); Lymphocytes # (A) 1.4 k/uL (1.0-4.8); Lymphocytes % (A) 15 %; MCH 28.9 pg (25.0-35.0); MCHC 32.7 g/dL (31.0-37.0); MCV 88.3 fL (80.0-100.0); Mean Platelet Volume 9.4; Monocytes # (A) 0.3 k/uL (0-1.0); Monocytes % (A) 4 %; Neutrophils # (A) 7.1 k/uL (1.3-7.7); Neutrophils % (A) 79 %; Platelet Count 185 k/uL (150-450); RBC 4.25 m/uL (3.80-5.40); RDW 13.1 % (11.5-15.5)
[2022-02-26] MEDS ORDERED: fentaNYL (PF) 50 MCG/ML 5 ML AMP ONE (00:18)
[2022-02-26] MEDS ORDERED: ROPIVACAINE 5 MG/ML 20 ML AMPULE ONE (00:18)
[2022-02-26] MEDS ORDERED: SODIUM CHLORIDE 0.9% 100 ML BAG ONE (00:18)
[2022-02-26] MEDS: LACTATED RINGERS 1,000 ML IV SCH ×2 (00:35→05:32)
--- NOTE | 2022-02-26 04:16 | P.HPOB ---
History of Present Illness H&P Date: 02/26/22 Chief Complaint: 39-2/7 weeks, spontaneous rupture of membranes, labor the patient is a 26-year-old 3 para 2001 admitted at 39-2/7 weeks as established by 12 week ultrasound. She is admitted for management of labor with documented spontaneous rupture of membranes. Her has been uncomplicated and group B strep status is negative. On labor and delivery, all signs reassuring with category 1 heart rate tracing. Group B strep status is negative. Obstetrical history: 3 para 2 scissors or 2 with 2 term vaginal deliveries without complications. Current statistics are listed in history of present illness. EDC of 03/03/2022 was established by 12 week ultrasound. Laboratory workup demonstrates a blood type of O+ with a negative antibody screen. Rubella status is immune. The remainder of the laboratory workup was within normal limits. One hour Glucola was normal and group B strep status is negative. Gynecologic history: Unremarkable with no history of any infections to include STDs. Review of Systems review of systems is confined to history of present illness. Past Medical History Past Medical History: GERD/Reflux History of Any Multi-Drug Resistant Organisms: None Reported Past Surgical History: No Surgical Hx Reported Additional Past Surgical History / Comment(s): EGD Past Anesthesia/Blood Transfusion Reactions: No Reported Reaction Past Psychological History: No Psychological Hx Reported Smoking Status: Never smoker Past Alcohol Use History: None Reported Past Drug Use History: None Reported - Past Family History Mother Family Medical History: No Reported History Medications and Allergies Home Medications Medication Instructions Recorded Confirmed Type Pnv No.95/Ferrous Fum/Folic AC 1 each PO DAILY 06/28/18 02/25/22 History [ Multivitamin Tablet] Allergies Allergy/AdvReac Type Severity Reaction Status Date / Time No Known Allergies Allergy Verified 02/25/22 22:39 Exam Vital Signs Temp Pulse Resp BP Pulse Ox 02/25/22 22:54 97.9 F 94 16 133/78 99 Intake and Output 02/25/22 02/25/22 02/26/22 14:59 22:59 06:59 Other: Weight 77.111 kg general, this is a well-developed, well-nourished white female in no acute distress. Her heart has a regular rhythm and rate without murmur. Her lungs are clear to auscultation bilaterally in all craig. Her abdomen is gravid, nondistended, has normal active bowel sounds, soft, nontender, without any palpable masses aside from uterine fundus. Her extremities are without any cyanosis, clubbing, or edema and are nontender to palpation bilaterally. Digital cervical examination by the nursing staff demonstrates her cervix to be 9 cm dilated, 30% effaced, the vertex in presentation at -1 station. Spontaneous rupture of membranes is documented. Results Result Diagrams: 02/25/22 22:45 Assessment and Plan (1) Active labor at term Current Visit: Yes Status: Acute Code(s): [id number] - SNOMED Code(s): 29167486 Plan: the patient has been admitted for active management of labor. She will continue to have close maternal and surveillance and expectant management will be practiced. An epidural catheter has been placed for analgesia. I would anticipate normal spontaneous vaginal delivery in the near future.
[2022-02-26] MEDS ORDERED: LANOLIN CREAM 5 GM TUBE TOPICAL PRN (06:09)
[2022-02-26] MEDS ORDERED: diphenhydrAMINE 25 MG CAP PO PRN (06:09)
[2022-02-26] MEDS ORDERED: BENZOCAINE/MENTHOL SPRAY 1 GM/SPRAY AEROSOL TOPICAL PRN (06:09)
[2022-02-26] MEDS ORDERED: diphenhydrAMINE 50 MG CAP PO PRN (06:09)
[2022-02-26] MEDS ORDERED: diphenhydrAMINE 50 MG/ML 1 ML VIAL IVP PRN ×2 (06:09)
[2022-02-26] MEDS ORDERED: HYDROCORTISONE 2.5% RECTAL CREAM 30 GM TUBE RECTAL PRN (06:09)
[2022-02-26] MEDS ORDERED: SIMETHICONE 80 MG CHEWABLE PO PRN (06:09)
[2022-02-26] MEDS ORDERED: HYDROcodone/APAP 5-325MG 1 EACH TAB PO PRN (06:09)
[2022-02-26] MEDS ORDERED: HYDROcodone/APAP 7.5-325MG 1 EACH TAB PO PRN (06:09)
[2022-02-26] MEDS ORDERED: ZOLPIDEM 5 MG TAB PO PRN (06:09)
--- NOTE | 2022-02-26 06:12 | P.PROBDLV ---
Vaginal Delivery Note - . Vaginal Delivery Note: the patient is a 26-year-old 3 para 2001 admitted at 39 and one sevenths weeks by good dating parameters. she is admitted with documented spontaneous rupture of membranes for clear fluid. Her has been entirely uncomplicated and group B strep status is negative. On labor and delivery, all signs reassuring with a category 1 heart rate tracing. She had an epidural catheter placed for analgesia and made fairly rapid progress through the active phase of labor and ultimately progressed to complete. She then pushed over the course were approximate 10-15 minutes to a normal spontaneous vaginal delivery of a viable 6 lbs. 2 oz. baby boy with Apgars of 8 at 1 minute and 9 at 5 minutes delivered in the left occiput anterior position. The placenta was delivered spontaneously, intact, and grossly normal with a grossly normal, marginally inserted three-vessel cord. There were no lacerations of the perineum, vagina, or cervix. Estimated blood loss for the case was approximate 100 mL. There were no complications. All sponge, instrument, and needle counts were correct. Both mother and infant are resting comfortably in recovery.
[2022-02-26] MEDS ORDERED: OXYTOCIN 30 UNITS/500 ML NS 30 UNIT in SALINE 1 500ML.BAG IV SCH (06:15)
[2022-02-26] MEDS: SENNOSIDES-DOCUSATE SODIUM 1 EACH TAB PO SCH ×2 (08:37→21:07)
[2022-02-26] MEDS: IBUPROFEN 600 MG TAB PO PRN ×2 (15:55→22:46)
[2022-02-26] MEDS: ACETAMINOPHEN TAB 325 MG TAB PO PRN (19:15)
[2022-02-27] MEDS: ACETAMINOPHEN TAB 325 MG TAB PO PRN ×3 (02:35→11:11)
[2022-02-27] MEDS: LACTATED RINGERS 1,000 ML IV SCH (02:49)
[2022-02-27] MEDS: IBUPROFEN 600 MG TAB PO PRN (05:28)
[2022-02-27] MEDS: SENNOSIDES-DOCUSATE SODIUM 1 EACH TAB PO SCH ×2 (07:51→19:53)
--- NOTE | 2022-02-27 09:15 | P.DS ---
Providers Date of admission: 02/25/22 22:20 Expected date of discharge: 02/27/22 Attending physician: Andrés Castro Primary care physician: Stated None - Discharge Diagnosis(es) (1) Active labor at term Current Visit: Yes Status: Acute (2) Normal spontaneous vaginal delivery Current Visit: Yes Status: Acute Hospital Course: the patient is a 26-year-old 3 para 2001 admitted at 39-2/7 weeks by good dating parameters perches admitted for labor with documented spontaneous rupture of membranes. Her was uncomplicated and group B strep status is negative. On labor and delivery, all signs reassuring with category 1 heart rate tracing. She had an epidural catheter placed and progressed through the active phase of labor fairly quickly to complete. She then pushed to a normal spontaneous vaginal delivery of a viable 6 lbs. 2 oz. baby boy with Apgars of 8 at 1 minute and 9 at 5 minutes. Her course was unremarkable with vital signs remained stable and her temperature was afebrile throughout. She was deemed stable for discharge on day #1 and was discharged home to follow-up in the office in 6 weeks' time routinely. Discharge instructions included calling for any significantly increased bleeding or foul-smelling lochia, significantly increased fever or abdominal pain, perineal complaints, breast complaints, or anything else that concerned her. She is additionally instructed to have nothing in the vagina for at least 6 weeks time to include intercourse. She understood her instructions and agrees to follow up as noted above. Discharge medications included continued vitamins as she has opted to breast-feed. She is additionally use [id number] analgesic pain medications as needed. Maternal blood type is O+ and rubella status is immune. Procedures: #1. Epidural analgesia #2. Normal spontaneous vaginal delivery Patient Condition at Discharge: Stable Plan - Discharge Summary New Discharge Prescriptions: No Action Pnv No.95/Ferrous Fum/Folic AC [ Multivitamin Tablet] 1 each PO DAILY Discharge Medication List Pnv No.95/Ferrous Fum/Folic AC [ Multivitamin Tablet] 1 each PO DAILY 06/28/18 [History] Follow up Appointment(s)/Referral(s): Andrés Castro MD [STAFF PHYSICIAN] - 6 Weeks Discharge Disposition: HOME SELF-CARE
[2022-02-27 15:49] VITALS: BP 104/63; PULSE 77; RESP 16; TEMP 97.4
== END 2022-02-27 21:30 | disposition home or self-care (01) | DRG 807 ==
LOC: FBPOP 22:05 → 4FBP 22:20 → UNDOADMIN 22:20
PROVIDERS: ADMIT Obstetrics & Gynecology; ATTEND Obstetrics & Gynecology
PROC: 10E0XZZ Delivery of Products of Conception, External Approach (ICD-10-PCS; principal; 2022-02-25)
PROC: 4A0HXCZ Measurement of Products of Conception, Cardiac Rate, External Approach (ICD-10-PCS; 2022-02-25)
DX: O42.92 Full-term premature rupture of membranes, unspecified as to length of time between rupture and onset of labor (principal); Z37.0 Single live birth; O99.62 Diseases of the digestive system complicating childbirth; K21.9 Gastro-esophageal reflux disease without esophagitis; Z3A.39 39 weeks gestation of pregnancy
CPT/HCPCS: 85025; 86850; 86900; 86901